=== PATIENT | male | born 2000 | race Asian ===

== ENCOUNTER 2018-12-07 18:08 | Outpatient (CLI) | payer OTHER | END 2018-12-07 18:11 | disposition short-term general hospital (02) | LOC: AMB 18:08 | DX: R51 Headache (principal); V49.9XXA Car occupant (driver) (passenger) injured in unspecified traffic accident, initial encounter; Y93.89 Activity, other specified; Y92.89 Other specified places as the place of occurrence of the external cause | CPT/HCPCS: A0425; A0429 ==

== ENCOUNTER 2018-12-07 18:19 | Emergency (ER) | payer OTHER ==
[~2018-12-07] VITALS: Ht 165.1 cm; Wt 102.1 kg
[2018-12-07 18:23] VITALS: TEMP 99
[2018-12-07 20:02] VITALS: BP 126/78
== END 2018-12-07 20:11 | disposition home or self-care (01) ==
LOC: ED 18:19
DX: S00.03XA Contusion of scalp, initial encounter (principal); V49.40XA Driver injured in collision with unspecified motor vehicles in traffic accident, initial encounter; Y92.89 Other specified places as the place of occurrence of the external cause
CPT/HCPCS: 99283

== ENCOUNTER 2021-04-28 11:38 | Emergency (ER) | payer OTHER ==
[~2021-04-28] VITALS: Ht 165.1 cm; Wt 95.3 kg
[2021-04-28 12:50] VITALS: BP 112/72; TEMP 98.5
== END 2021-04-28 12:50 | disposition home or self-care (01) ==
LOC: ED 11:38
DX: J02.0 Streptococcal pharyngitis (principal); F17.290 Nicotine dependence, other tobacco product, uncomplicated
CPT/HCPCS: 87651; 99282

== ENCOUNTER 2023-01-02 15:35 | Emergency (ER) | payer OTHER ==
[~2023-01-02] VITALS: Ht 165.1 cm; Wt 97.1 kg
[2023-01-02 15:45] VITALS: BP 137/94; TEMP 98.9
[2023-01-02 16:35] LABS: PLATELET COUNT 226 K/uL (142-355)
[2023-01-02 16:41] LABS: POTASSIUM 4.3 mmol/L (3.6-5.2)
== END 2023-01-02 18:35 | disposition home or self-care (01) ==
LOC: ED 15:35
PROVIDERS: Emergency Medicine Emergency Medical Services
DX: K29.00 Acute gastritis without bleeding (principal)
CPT/HCPCS: 80053; 80307; 81002; 82150; 83690; 85027; 96361; 96374; 96375; 99284; J1885; J2405; J3490